=== PATIENT | female | born 1960 | race Asian ===

== ENCOUNTER 2020-11-10 11:30 | Day surgery (SDC) | payer BC ==
[~2020-11-10] VITALS: Ht 157.5 cm; Wt 53.6 kg
[~2020-11-10 11:30] MED LIST: AMOXICILLIN 8751 TAB; PRINIVIL5 MG PO; PROBIOTIC ACID1 EAC3 PO; PROSCAR 5MG5 MG PO
[2020-11-10 11:32] VITALS: BP 126/36; PULSE 85; TEMP 97.5
[2020-11-10 12:15] VITALS: BP 94/66; PULSE 75; TEMP 97.3
--- NOTE | 2020-11-10 12:23 | NUR ---
PT RETURNED FROM ENDO PROCEDURE ROOM PER CART. PT ALERT ANS SLEEPY. ORIENTATED TO PLACE AND TIME. PT DENIES PAIN OR NAUSEA AT THIS TIME. VSS, AFEBRILE. LUNGS CLEAR, HRR, BOWEL SOUNDS ACTIVE. PT REQUESTS COFFE, WATER AND BLUEBERRY MUFFIN. PT TOLERATING WELL. WILL CONT TO MONITOR.
[2020-11-10 12:30] VITALS: BP 106/77; PULSE 73
[2020-11-10 12:45] VITALS: BP 119/70; PULSE 68
--- NOTE | 2020-11-10 12:49 | NUR ---
PT ALERT AD SLEEPY. TOLERATING BLUEBERRY MUFFIN AND COFFE AND WATER WITHOUT DIFFICULTY. DENIES PAIN OR NAUSEA.
--- NOTE | 2020-11-10 12:51 | NUR ---
PT CONTINUES TO DENY NAUSEA AND OR PAIN. TOLERATES FOOD AND FLUIDS. #22 REMOVED FROM RIGHT AC WITHOUT PROBLEM. PT DISCHARGED PER WC TO FAMILY VEHICLE. SIGHNED DISCHARGE INSTRUCTIONS. DENIES QUESTIONS. PT DRIVING.
== END 2020-11-10 13:14 | disposition home or self-care (01) ==
LOC: SDCO 11:30
DX: Z12.11 Encounter for screening for malignant neoplasm of colon (principal); F32.9 Major depressive disorder, single episode, unspecified; Z90.49 Acquired absence of other specified parts of digestive tract; I10 Essential (primary) hypertension; Z95.2 Presence of prosthetic heart valve; Z88.2 Allergy status to sulfonamides; M19.90 Unspecified osteoarthritis, unspecified site; Z20.822 Contact with and (suspected) exposure to COVID-19
CPT/HCPCS: J2704; J3010; J7120

== ENCOUNTER → 2021-01-17 | Outpatient (CLI) | payer BC | LOC: MC.RAD 13:15 | DX: Z12.31 Encounter for screening mammogram for malignant neoplasm of breast (principal); Z00.00 Encounter for general adult medical examination without abnormal findings; Z98.82 Breast implant status ==

== ENCOUNTER → 2022-01-23 | Outpatient (CLI) | payer OTHER | LOC: MC.RAD 09:45 | DX: Z12.31 Encounter for screening mammogram for malignant neoplasm of breast (principal) ==

== ENCOUNTER → 2023-01-25 | Outpatient (CLI) | payer OTHER | LOC: MC.RAD 14:16 | DX: Z12.31 Encounter for screening mammogram for malignant neoplasm of breast (principal) ==

== ENCOUNTER → 2024-02-07 | Outpatient (CLI) | payer OTHER | LOC: MC.RAD 10:22 | DX: Z12.31 Encounter for screening mammogram for malignant neoplasm of breast (principal) ==